=== PATIENT | female | born 1940 | race Caucasian/White ===

== ENCOUNTER → 2021-07-21 | Outpatient (CLI) | payer MEDICARE ==
--- NOTE | 2021-07-21 19:29 | MR ---
EXAMINATION TYPE: MR lumbar spine wo con DATE OF EXAM: 07/21/2021 COMPARISON: None HISTORY: Spondylosis lumbar, pain radiatiting down legs Multiplanar multiecho imaging of the lumbar spine without contrast. There is a mild anterior subluxation of L4 in relation L5 of less than 5 mm. There is posterior disc herniation at L4-5. There is extension towards the right side with some neural foraminal impingement. There is no lumbar paraspinal mass. There is no compression fracture. I see no focal bone destructio n. Sacrum is intact. 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 There is right side lateral recess stenosis. Degenerative first-degree L4-5 spondylolisthesis. No compression fracture.
== END ==
LOC: RADMRIMAIN 08:23
PROVIDERS: ATTEND Internal Medicine
DX: M47.26 Other spondylosis with radiculopathy, lumbar region (principal); M43.16 Spondylolisthesis, lumbar region
CPT/HCPCS: 72148

== ENCOUNTER 2022-08-07 15:15 | Emergency (ER) | payer MEDICARE ==
[2022-08-07 15:37] VITALS: BP 121/60; PULSE 78; RESP 16; TEMP 97.7
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
== END 2022-08-07 17:54 | disposition left against medical advice (07) ==
LOC: EC 15:15
DX: Z53.21 Procedure and treatment not carried out due to patient leaving prior to being seen by health care provider (principal)
CPT/HCPCS: 70450; 72125; 99499